=== PATIENT | female | born 1960 | race Caucasian/White ===

== ENCOUNTER 2017-01-09 07:55 | Day surgery (SDC) | payer OTHER ==
--- NOTE | ~2017-01-09 | EGD ---
EGD REPORT [facility] [address] [address] NAME: KYA MEEK : [birth year] STATUS : [facility]#: [id number] AGE: 56 ADM/REG DATE : 01/09/17 MR#: [id number] REPORT SERV DATE: 01/09/17 DICTATED BY: REUBEN AGOSTO DATE: 01/09/17 REPORT STATUS : Draft [facility]ANS[facility]IBED BY: [facility] DATE: 01/09/17 Endoscopy Center Patient Name: Kya Meek Date of : 1960 Attending MD: REUBEN AGOSTO MD Procedure Date No Time: 01/09/2017 Procedure: Colonoscopy Indications: Surveillance: Personal history of adenomatous polyps on last colonoscopy > 3 years ago Referring MD: Mary Lou Hernandez Medicines: Propofol per Anesthesia Complications: No immediate complications. Procedure: Pre-Anesthesia Assessment: - ASA Grade Assessment: II - A patient with mild systemic disease. After I obtained informed consent, the scope was passed under direct vision. Throughout the procedure, the patient's blood pressure, pulse, and oxygen saturations were monitored continuously. The CF [id number] was introduced through the anus and advanced to the cecum, identified by appendiceal orifice and ileocecal valve. The colonoscopy was performed without difficulty. The patient tolerated the procedure well. The quality of the bowel preparation was good. Findings: The perianal and digital rectal examinations were normal. Localized moderate inflammation characterized by altered vascularity, congestion (edema), erosions and aphthous ulcerations was found in the cecum. Biopsies were taken with a cold forceps for histology. The rectum, sigmoid colon, descending colon, transverse colon and ascending colon appeared normal. A sessile polyp was found in the proximal ascending colon. The polyp was 7 mm in size. The polyp was removed with a hot snare. Resection and retrieval were complete. A sessile polyp was found in the proximal ascending colon. The polyp was 3 mm in size. The polyp was removed with a cold snare. Resection and retrieval were complete. Multiple small and large-mouthed diverticula were found in the recto-sigmoid colon, in the sigmoid colon, in the descending colon, in the transverse colon and in the ascending colon. Two sessile polyps were found in the transverse colon. The polyps were 2 to 3 mm in size. These polyps were removed with a cold biopsy forceps. Resection and retrieval were complete. A sessile polyp was found in the descending colon. The polyp was 2 mm in EGD REPORT [address] [address] NAME: KYA MEEK : [birth year] STATUS : [facility]#: [id number] AGE: 56 ADM/REG DATE : 01/09/17 MR#: [id number] REPORT SERV DATE: 01/09/17 DICTATED BY: REUBEN AGOSTO DATE: 01/09/17 REPORT STATUS : Draft TRANSCRIBED BY: [facility] DATE: 01/09/17 size. The polyp was removed with a cold biopsy forceps. Resection and retrieval were complete. A sessile polyp was found in the sigmoid colon. The polyp was 2 mm in size. The polyp was removed with a cold biopsy forceps. Resection and retrieval were complete. Non-bleeding internal hemorrhoids were found during retroflexion and were mild, small and Grade I (internal hemorrhoids that do not prolapse). Impression: - Localized moderate inflammation was found in the cecum secondary to colitis. Biopsied. - The rectum, sigmoid colon, descending colon, transverse colon and ascending colon are normal. - One 7 mm polyp in the proximal ascending colon. Resected and retrieved. - One 3 mm polyp in the proximal ascending colon. Resected and retrieved. - Diverticulosis in the recto-sigmoid colon, in the sigmoid colon, in the descending colon, in the transverse colon and in the ascending colon. - Two 2 to 3 mm polyps in the transverse colon. Resected and retrieved. - One 2 mm polyp in the descending colon. Resected and retrieved. - One 2 mm polyp in the sigmoid colon. Resected and retrieved. - Non-bleeding internal hemorrhoids. Recommendation: - Patient has a contact number available for emergencies. The signs and symptoms of potential delayed complications were discussed with the patient. Return to normal activities tomorrow. Written discharge instructions were provided to the patient. - Return to previous diet. - Continue present medications. - Use Prilosec OTC 20 mg PO daily. - take 30-60 minutes before breakfast - Await pathology results. - Repeat colonoscopy in 3 - 5 years for surveillance based on pathology results. - Return to my office as previously scheduled. - Discharge patient to home. Procedure Code(s): --- Professional --- 94437, Colonoscopy, flexible, proximal to splenic flexure; with removal of tumor(s), polyp(s), or other lesion(s) by snare technique 81052, 59, Colonoscopy, flexible, proximal to splenic EGD REPORT [address] [place]. [address] NAME: KYA MEEK : 60 STATUS : [facility]#: [id number] AGE: 56 ADM/REG DATE : 01/09/17 MR#: [id number] REPORT SERV DATE: 01/09/17 DICTATED BY: REUBEN AGOSTO DATE: 01/09/17 REPORT STATUS : Draft TRANSCRIBED BY: [facility] DATE: 01/09/17 flexure; with biopsy, single or multiple Diagnosis Code(s): --- Professional --- K52.9, Noninfective gastroenteritis and colitis, unspecified K64.0, First degree hemorrhoids K57.30, Diverticulosis of large intestine without perforation or abscess without bleeding D12.5, Benign neoplasm of sigmoid colon D12.4, Benign neoplasm of descending colon D12.3, Benign neoplasm of transverse colon D12.2, Benign neoplasm of ascending colon Z86.010, Personal history of colonic polyps CPT copyright 2013 [employer] [place] [employer]. All rights reserved. The codes documented in this report are preliminary and upon nurse transplant review may be revised to meet current compliance requirements. Reuben Agosto MD REUBEN AGOSTO MD 01/09/2017 11:07 AM This report has been signed electronically. Number of Addenda: 0 Note Initiated On: 01/09/2017 10:07 AM Scope Withdrawal Time 0 hours 33 minutes 11 seconds [id number] [place] [id number]
[~2017-01-09 07:55] MED LIST: ANTIOXIDENT PO; ASAB PO; CELEBREX400 MG PO; HYDROCHLOROT25 MG PO; KAPIDEX60 MG PO; METAMUCIL TABLETS PO; MOBIC7.5 PO; PCET PO; POTASSIUM95 MG PO; PROBIOTICS PO; RANITIDINE300 MG PO; SEREVDISC INH; SYN075 PO; TOPAMAX25 PO; ULTRAM50 PO; V80 PO
== END 2017-01-09 23:59 | disposition home or self-care (01) ==
LOC: DMU 07:55
PROVIDERS: Internal Medicine Gastroenterology
PROC: 0DBM8ZX Excision of Descending Colon, Via Natural or Artificial Opening Endoscopic, Diagnostic (ICD-10-PCS; 2017-01-09)
PROC: 0DBL8ZX Excision of Transverse Colon, Via Natural or Artificial Opening Endoscopic, Diagnostic (ICD-10-PCS; 2017-01-09)
PROC: 0DBH8ZX Excision of Cecum, Via Natural or Artificial Opening Endoscopic, Diagnostic (ICD-10-PCS; 2017-01-09)
PROC: 0DBK8ZX Excision of Ascending Colon, Via Natural or Artificial Opening Endoscopic, Diagnostic (ICD-10-PCS; principal; 2017-01-09 09:00)
PROC: 0DBN8ZX Excision of Sigmoid Colon, Via Natural or Artificial Opening Endoscopic, Diagnostic (ICD-10-PCS; 2017-01-09 09:00)
DX: Z12.11 Encounter for screening for malignant neoplasm of colon (principal); D12.3 Benign neoplasm of transverse colon; D12.2 Benign neoplasm of ascending colon; K63.5 Polyp of colon; K52.89 Other specified noninfective gastroenteritis and colitis; I10 Essential (primary) hypertension; E03.9 Hypothyroidism, unspecified; K64.0 First degree hemorrhoids; K57.30 Diverticulosis of large intestine without perforation or abscess without bleeding; Z86.010 Personal history of colon polyps; Z88.8 Allergy status to other drugs, medicaments and biological substances; Z98.51 Tubal ligation status; Z98.890 Other specified postprocedural states
CPT/HCPCS: 88305